=== PATIENT | female | born 1940 | race Caucasian/White ===

== ENCOUNTER → 2018-09-10 | Outpatient (CLI) | payer OTHER | LOC: NUC 12:52 | DX: N95.1 Menopausal and female climacteric states (principal); N95.9 Unspecified menopausal and perimenopausal disorder; N91.2 Amenorrhea, unspecified; Z91.048 Other nonmedicinal substance allergy status; Z88.2 Allergy status to sulfonamides ==

== ENCOUNTER → 2018-11-21 | Outpatient (CLI) | payer OTHER | LOC: RAD 11-19 14:45 | DX: Z12.31 Encounter for screening mammogram for malignant neoplasm of breast (principal) ==

== ENCOUNTER → 2019-12-16 | Outpatient (CLI) | payer OTHER | LOC: BC 09:57 | PROVIDERS: ATTEND Family Medicine | DX: Z12.31 Encounter for screening mammogram for malignant neoplasm of breast (principal); N64.89 Other specified disorders of breast ==

== ENCOUNTER → 2020-12-16 | Outpatient (CLI) | payer OTHER | END | disposition home or self-care (01) | LOC: BC 10:56 | PROVIDERS: ATTEND Family Medicine | DX: Z12.31 Encounter for screening mammogram for malignant neoplasm of breast (principal) ==